=== PATIENT | male | born 1995 | race Caucasian/White ===

== ENCOUNTER 2024-10-18 13:30 | Emergency (ER) | payer SELFPAY ==
[~2024-10-18] VITALS: Ht 180.3 cm; Wt 104.3 kg
[2024-10-18 13:53] VITALS: BP 132/68; PULSE 102; RESP 16; TEMP 98.4; O2SAT 96
[2024-10-18 14:01] LABS: RAPID GROUP A STREP negative (NEGATIVE)
[2024-10-18 14:03] LABS: SARS-CoV-2, RNA, NAAT NEGATIVE SARS CoV-2 (NEGATIVE)
[2024-10-18 14:11] LABS: INFLUENZA TYPE A Negative For Type A (NEGATIVE); INFLUENZA TYPE B Negative For Type B (NEGATIVE)
[2024-10-18] MEDS ORDERED: AZIT250T9 PO (15:19)
[2024-10-18] MEDS ORDERED: METH4TAB3 PO (15:19)
--- NOTE | 2024-10-18 15:20 | ERN ---
General Chief Complaint: Sore Throat Stated Complaint: CHILLS, SORE THROAT Time Seen by MD: 13:41 Time Seen by Midlevel: 13:41 Source: patient History of Present Illness Allergies: Coded Allergies: No Known Allergies (Unverified Allergy, Unknown, 10/18/24) Past Medical History Past Medical History: No Pertinent History Past Surgical History: Appendectomy, Other Results Laboratory and Microbiology Lab and Micro Result Laboratory Tests Test 10/18/24 13:45 Influenza Type A Antigen Negative For Type A Influenza Type B Antigen Negative For Type B SARS-CoV-2, RNA, NAAT NEGATIVE SARS CoV-2 Group A Streptococcus Rapid negative (NEGATIVE) ED Course Orders Procedure Category Date Status Time Covid Rna Naat LAB 10/18/24 Complete 13:33 Influenza Type A & B, LAB 10/18/24 Complete Rapid 13:33 Rapid (Group A Strep) LAB 10/18/24 Complete 13:33 Vital Signs Date Time Temp Pulse Resp B/P (MAP) Pulse Ox O2 Delivery O2 Flow Rate FiO2 10/18/24 13:53 98.4 102 16 132/68 96 Room Air* 0 21 10/18/24 13:32 98.4 102 16 96 Room Air 0 DX & DISP Disposition: Discharge Departure Impression: Primary Impression: Pharyngitis Additional Impression: Upper respiratory infection Condition: Stable Scripts Azithromycin (Azithromycin) 250 Mg Tablet 1 TAB PO AD for 5 Days, #6 TAB 0 Refills 2 the first day followed by 1 for days 2-5 Prov: SALINA ROCHA 10/18/24 Methylprednisolone (Medrol) 4 Mg Tab.ds.pk 1 TAB PO AD for 6 Days, #21 TAB 0 Refills 6 on day 1 then reduce by one tablet daily until gone Prov: SALINA ROCHA 10/18/24 Referrals: SELF,REFERRAL (PCP) Time of Disposition: 15:19 I have reviewed the case, and I agree with, Diagnosis and Plan SALINA ROCHA Oct 18, 2024 15:20
== END 2024-10-18 15:58 | disposition home or self-care (01) ==
LOC: EDH 13:30
DX: J02.9 Acute pharyngitis, unspecified (principal); J06.9 Acute upper respiratory infection, unspecified; Z90.49 Acquired absence of other specified parts of digestive tract; Z20.822 Contact with and (suspected) exposure to COVID-19
CPT/HCPCS: 87635; 87804; 87880; 99283

== ENCOUNTER 2025-01-07 16:31 | Emergency (ER) | payer OTHER ==
[~2025-01-07] VITALS: Ht 180.3 cm; Wt 113.4 kg
[~2025-01-07 16:31] MED LIST: AZIT250T9 PO; METH4TAB3 PO
[2025-01-07] MEDS: acetaMINOPHEN 500 MG TABLET PO ONE (17:50)
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
--- NOTE | 2025-01-07 19:22 | HMCIMG ---
INDICATION: Pain TECHNIQUE: CHEST 1VW COMPARISON: None FINDINGS AND IMPRESSION: No acute consolidation or pleural effusion. Cardiac silhouette is within normal limits. Mild degenerative changes of the spine. The visualized upper abdomen appears unremarkable.
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
[2025-01-07] MEDS ORDERED: IBUP-2070 PO (19:35)
[2025-01-07] MEDS ORDERED: CYCL10TA16 PO (19:35)
[2025-01-07 19:41] VITALS: BP 131/85; PULSE 90; RESP 20; TEMP 98.8; O2SAT 98
== END 2025-01-07 19:55 | disposition home or self-care (01) ==
LOC: EDH 16:31
DX: M54.50 Low back pain, unspecified (principal); Z90.49 Acquired absence of other specified parts of digestive tract; V89.2XXA Person injured in unspecified motor-vehicle accident, traffic, initial encounter; Y93.89 Activity, other specified; Y92.89 Other specified places as the place of occurrence of the external cause; Y99.8 Other external cause status
CPT/HCPCS: 71045; 72072; 72100; 99284

== ENCOUNTER 2025-03-25 14:33 | Emergency (ER) | payer OTHER ==
[~2025-03-25] VITALS: Ht 180.3 cm; Wt 113.4 kg
[~2025-03-25 14:33] MED LIST changes: +CYCL10TA16 PO; +IBUP-2070 PO
--- NOTE | 2025-03-25 16:09 | HMCIMG ---
Exam Type: CT HEAD/BRAIN W/O CONTRAST Clinical Information: fall Comparison: None CT Dose Index (CTDI): 57.33 mGy Dose Length Product (DLP): 956.79 total mGy-cm Findings: The examination is unremarkable. Saul-white matter junction is preserved. No intra or extra axial lesions or fluid collections are seen. Specifically, saul and white matter are normal in signal characteristics with normal caliber of ventricles and periventricular cisterns with no evidence of intra or or extra-axial hemorrhage, lacunar infarct, or major territorial infarct, mass, or other abnormality. There are no infarcts. There are no hemorrhages. Periventricular white matter locations are preserved. The orbital contents and structures of the posterior fossa are intact. Impression: Normal CT of the head. This study was performed using dose reduction techniques to include automated exposure control and/or adjustment of the mA and/or kV according to patient size.
[2025-03-25] MEDS: HYDROcodone/APAP 5/325 1 TAB TABLET PO STA (16:36)
--- NOTE | 2025-03-25 16:49 | HMCIMG ---
Exam Type: HIP UNILAT 2-3VW LEFT Clinical Information: fall Comparison: None Findings: The bone examination is unremarkable. No fractures or dislocations are seen. No radiopaque foreign bodies are noted. Soft tissues are preserved. IMPRESSION: Normal examination.
--- NOTE | 2025-03-25 16:50 | HMCIMG ---
C-SPINE, 3 VIEW- ap, lateral, open-mouth History: fall Comparison: none FINDINGS: C1 through the top of T1 are seen on the lateral view. The prevertebral soft tissues are normal. The vertebral bodies are well-aligned and without fracture. The disc spaces are normal as is the distance between the arch of C1 and the dens. The spinolaminar line is smooth and the spinous process tips intact. The AP view of the cervical spine is unremarkable and the open-mouth view shows an intact dens and a normal relationship between the lateral masses of C1 and the articular surfaces of C2. IMPRESSION: NEGATIVE CERVICAL SPINE SERIES (THREE VIEWS).
--- NOTE | 2025-03-25 16:50 | HMCIMG ---
Exam Type: RIBS UNI LT W PA CHEST 3+VWS Clinical Information: fall Comparison: None Findings: Routine views reveal no evidence of fracture, dislocation, destructive process, or other rib abnormalities. No soft tissue abnormality is noted either. There is no evidence of pneumothorax. IMPRESSION: NORMAL RIB SERIES.
--- NOTE | 2025-03-25 17:12 | ERN ---
ED Note History of Present Illness Stated Complaint: FALL Chief Complaint: Mechanical Fall Time Seen by MD: 14:36 Time Seen by Midlevel: 14:40 Dictation: 29 Year old male with no past medical history coming in with complaints of headache, left rib pain and left hip pain status post slipped and fall from more than five stairs. Patient states he was able to grab on from the rail and slid down the stairs. Allergies: Coded Allergies: No Known Allergies (Unverified Allergy, Unknown, 10/18/24) Home Meds Active Scripts Cyclobenzaprine HCl (Flexeril) 10 Mg Tab, 10 MG PO TID for muscle sstiffness, #14 TAB 0 Refills Prov:MIRELESZULMA HOLLOWAY INVENTORY CONTROL CLERK 01/07/25 Ibuprofen (Ibuprofen) 600 Mg Tablet, 600 MG PO Q6H PRN for PAIN, #10 TAB Prov:MIRELESATTILA HOLLOWAYLEN INVENTORY CONTROL CLERK 01/07/25 Azithromycin (Azithromycin) 250 Mg Tablet, 1 TAB PO AD for 5 Days, #6 TAB 0 Refills 2 the first day followed by 1 for days 2-5 Prov:SALINA ROCHA 10/18/24 Methylprednisolone (Medrol) 4 Mg Tab.ds.pk, 1 TAB PO AD for 6 Days, #21 TAB 0 Refills 6 on day 1 then reduce by one tablet daily until gone Prov:SALINA ROCHA 10/18/24 Past Medical History Past Medical History: No Pertinent History Surgical History: Appendectomy, Other Review of System Dictation Constitutional: Negative for fever,chills, and weight loss Eyes: Negative for injury, pain,redness, and discharge ENT: Negative for injury,pain or swelling Cardiovascular: Negative for chest pain, palpitations, and edema, complaining of left rib pain Respiratory: Negative for shortness of breath, cough, and wheezing, Abdomen/GI: Negative for abdominal pain, nausea, vomiting, diarrhea, and constipation Back: Negative for injury and pain : Negative for injury, bleeding and discharge MS/Extremity: Negative for injury and deformity Skin: Negative for rash, and discoloration Neuro: Complaining of headache, no weakness, no numbness, no tingling, and no seizure Psych: Negative for suicide ideation, homicidal ideation, and hallucinations Review of Systems: was completed Initial Vital Sign VS Vital Signs Date Time Temp Pulse Resp B/P (MAP) Pulse Ox O2 Delivery O2 Flow Rate FiO2 5/7/25 14:35 98.4 98 16 163/91 98 Room Air Physical Exam Dictation General: awake, alert, NAD Head/Face: Normocephalic, atraumatic Eyes: PERRL, EOMI, vision at baseline ENT: oral cavity clear, TMs clear, no signs of infection Neck: Trachea midline, supple, no nuchal rigidity Cardiovascular: RRR, normal S1/S2, No MRGs, no JVD Respiratory: CTAB, no respiratory distress, No rales or wheezes Abdomen: Soft, non-tender, non-distended, normal bowel sounds, no guarding or rebound. Skin: Warm, dry, normal turgor, no rash MS/Extremity: Pulses equal, no cyanosis, neurovascular intact, FROM no C-spine midline tenderness Neuro: COAx4, GCS 15, strength 5/5, CN 2-12 intact, normal cerebellar exam, normal gait, Psych: Normal behavior, mood, and affect normal Results (Laboratory/Radiology) X-RAY Comment: [place] [id number] [phone] IMAGING REPORT Signed PATIENT: WINTER DIEHL MR#: [id number] : 1995 SEX: M AGE: 29 LOCATION: [facility] ORDER 16 STATUS: [facility] REPORT#: [id number] SERVICE 14 REASON: fall ORDERING PHYSICIAN: VEDA BRICENO NP PROCEDURE: RIB LT W C - RIBS UNI LT W PA CHEST 3+VWS Exam Type: RIBS UNI LT W PA CHEST 3+VWS Clinical Information: fall Comparison: None Findings: Routine views reveal no evidence of fracture, dislocation, destructive process, or other rib abnormalities. No soft tissue abnormality is noted either. There is no evidence of pneumothorax. IMPRESSION: NORMAL RIB SERIES. DICTATED BY: ALEE DAMON MD DATE: 03/25/255 ELECTRONICALLY SIGNED BY: ALEE DAMON MD DATE: 03/25/25 [address] [place] [id number] [phone] IMAGING REPORT Signed PATIENT: WINTER DIEHL MR#: [id number] : 1995 SEX: M AGE: 29 LOCATION: ED ORDER 16 STATUS: [facility] REPORT#: [id number] SERVICE 14 REASON: fall ORDERING PHYSICIAN: VEDA BRICENO NP PROCEDURE: HIP U 2V L - HIP UNILAT 2-3VW LEFT Exam Type: HIP UNILAT 2-3VW LEFT Clinical Information: fall Comparison: None Findings: The bone examination is unremarkable. No fractures or dislocations are seen. No radiopaque foreign bodies are noted. Soft tissues are preserved. IMPRESSION: Normal examination. DICTATED BY: ALEE DAMON MD DATE: 03/25/251645 ELECTRONICALLY SIGNED BY: ALEE DAMON MD DATE: 03/25/251648 [place] [phone] IMAGING REPORT Signed PATIENT: WINTER DIEHL MR#: [id number] : 1995 SEX: M AGE: 29 LOCATION: ED ORDER 16 STATUS: [facility] REPORT#: [id number] SERVICE 14 REASON: fall ORDERING PHYSICIAN: VEDA BRICENO NP PROCEDURE: CERV 2 3VW - CERV SPINE 2-3VWS C-SPINE, 3 VIEW- ap, lateral, open-mouth History: fall Comparison: none FINDINGS: C1 through the top of T1 are seen on the lateral view. The prevertebral soft tissues are normal. The vertebral bodies are well-aligned and without fracture. The disc spaces are normal as is the distance between the arch of C1 and the dens. The spinolaminar line is smooth and the spinous process tips intact. The AP view of the cervical spine is unremarkable and the open-mouth view shows an intact dens and a normal relationship between the lateral masses of C1 and the articular surfaces of C2. IMPRESSION: NEGATIVE CERVICAL SPINE SERIES (THREE VIEWS). DICTATED BY: ALEE DAMON MD DATE: 03/25/251647 ELECTRONICALLY SIGNED BY: ALEE DAMON MD DATE: 03/25/[address] Scan Comment: [place] [id number] [place] [phone] IMAGING REPORT Signed PATIENT: WINTER DIEHL MR#: [id number] : 1995 SEX: M AGE: 29 LOCATION: [facility] ORDER 1516 STATUS: REG ER REPORT#: [id number] SERVICE 1517 REASON: fall ORDERING PHYSICIAN: VEDA BRICENO NP PROCEDURE: HEAD WO - CT HEAD/BRAIN W/O CONTRAST Exam Type: CT HEAD/BRAIN W/O CONTRAST Clinical Information: fall Comparison: None CT Dose Index (CTDI): 57.33 mGy Dose Length Product (DLP): 956.79 total mGy-cm Findings: The examination is unremarkable. Saul-white matter junction is preserved. No intra or extra axial lesions or fluid collections are seen. Specifically, saul and white matter are normal in signal characteristics with normal caliber of ventricles and periventricular cisterns with no evidence of intra or or extra-axial hemorrhage, lacunar infarct, or major territorial infarct, mass, or other abnormality. There are no infarcts. There are no hemorrhages. Periventricular white matter locations are preserved. The orbital contents and structures of the posterior fossa are intact. Impression: Normal CT of the head. This study was performed using dose reduction techniques to include automated exposure control and/or adjustment of the mA and/or kV according to patient size. DICTATED BY: ALEE DAMON MD DATE: 03/25/25 1604 ELECTRONICALLY SIGNED BY: ALEE DAMON MD DATE: 03/25/25 1609 ED Course ED Course Orders Procedure Category Date Status Time Ct Head/Brain W/O CT 03/25/25 Resulted Contrast 15:15 Cerv Spine 2-3vws RAD 03/25/25 Resulted 15:15 Ribs Uni Lt W Pa RAD 03/25/25 Resulted Chest 3+Vws 15:15 Hip Unilat 2-3vw Left RAD 03/25/25 Resulted 15:15 Hydrocodone/Apap PHA 03/25/25 Complete 5/325 ([place] 5/325mg) 15:15 Current Medications Medications (Trade) Dose Ordered Sig/Damien Route PRN Reason Start Time Stop Time Status Last Admin Dose Admin Acetaminophen/ Hydrocodone Bitart (NORco 5/325MG) 1 tab ONCE STAT PO 03/25/25 15:15 03/25/25 15:18 DC Vital Signs Date Time Temp Pulse Resp B/P (MAP) Pulse Ox O2 Delivery O2 Flow Rate FiO2 03/25/25 14:35 98.4 98 16 163/91 98 Room Air Medical Decision Making MDM MDM: 29 Year old male with no past medical history coming in with complaints of headache, left rib pain and left hip pain status post slipped and fall from more than five stairs. Patient states he was able to grab on from the rail and slid down the stairs. All imaging is negative. Discussed findings with the patient. Educated patient that he will be sore for the next few days to take Tylenol or Motrin [id number] for pain control. Educated on red flag symptoms of when to return back to the ER. Patient verbalized understanding, answered all questions. Differential diagnosis: ICH, head contusion, hip contusion, rib contusion, Rationale: Tests considered and ordered secondary to shared decision making include: Previous outside records reviewed: Old ER visits. Risk of complication and/or morbidity or mortality of patient management: None Medications-Per medication reconciliation Need for hospitalization: Patient does not meet criteria for hospitalization. Need for emergency major/minor surgery: No There are no social concerns with this patient. Prescription drug management Prescriptions will include symptomatic care Patient's prior external medical records from other ER visits were reviewed by me as indicated. Prior testing and results from previous visits were reviewed. Prior tests were taken into account with medical decision making and resource utilization, independent historian/historians were used to obtain complete medical history. I independently interpreted the test that were performed, results were reviewed by me and considered findings on radiology if ordered. Medical management and examination interpretation discussions were had by me with other qualified healthcare professionals as indicated for the patient's care. DX & DISP Disposition: Discharge Departure Impression: Primary Impression: Fall Additional Impressions: Head contusion, Contusion, hip Condition: Stable Additional Instructions: It was expected to be sore for the next couple of days. Take Tylenol or Motrin [id number] for pain control. Return to the hospital if you have any nausea, vomiting, severe headaches. Referrals: SELF,REFERRAL (PCP) Time of Disposition: 17:11 I have reviewed the case, and I agree with, Diagnosis and Plan VEDA BRICENO NP March 25, 2025 17:12
--- NOTE | 2025-03-25 18:06 | HMCIMG ---
LEFT WRIST RADIOGRAPHS - 3 VIEWS INDICATION: Pain after fall COMPARISON: None FINDINGS: AP, lateral, and oblique views. No evidence for acute fracture or subluxation. Scaphoid bone fixation screw in place. Ulnar variance is within normal limits. Carpal alignment is well maintained. No radiopaque foreign body noted. IMPRESSION: No evidence for fracture or dislocation.
[2025-03-25 18:13] VITALS: BP 132/70; PULSE 80; RESP 16; TEMP 98.2; O2SAT 100
== END 2025-03-25 18:15 | disposition home or self-care (01) ==
LOC: EDH 14:33
DX: S70.02XA Contusion of left hip, initial encounter (principal); S00.93XA Contusion of unspecified part of head, initial encounter; Z90.49 Acquired absence of other specified parts of digestive tract; W01.0XXA Fall on same level from slipping, tripping and stumbling without subsequent striking against object, initial encounter; Y93.89 Activity, other specified; Y92.89 Other specified places as the place of occurrence of the external cause; Y99.8 Other external cause status
CPT/HCPCS: 70450; 71101; 72040; 73100; 73502; 99284